=== PATIENT | male | born 1985 | race Caucasian/White ===

== ENCOUNTER 2018-06-11 18:18 | Emergency (ER) | payer SELFPAY ==
[~2018-06-11] VITALS: Ht 188 cm; Wt 72.0 kg
[2018-06-11 18:26] VITALS: BP 125/79
== END 2018-06-11 19:07 | disposition home or self-care (01) ==
LOC: ED 18:58
DX: K02.9 Dental caries, unspecified (principal); K04.7 Periapical abscess without sinus; Z88.0 Allergy status to penicillin
CPT/HCPCS: 99283